=== PATIENT | male | born 1980 | race Caucasian/White ===

== ENCOUNTER 2016-12-14 21:14 | Emergency (ER) | payer OTHER ==
[~2016-12-14 21:14] MED LIST: ATIVAN0.5 MG PO; BACLOFEN10 MG PO; BACTROBAN22 GM; FOLIC ACID 1 MG1 MG PO; LEVAQUIN500 MG PO; MAGIC MOUTHWASH PO; NEURONTIN300 MG PO; THERAGRAN TAB1 EA PO; ZANTAC150 MG PO
== END 2016-12-15 02:00 | disposition left against medical advice (07) ==
LOC: ER1 21:14
DX: Z53.21 Procedure and treatment not carried out due to patient leaving prior to being seen by health care provider (principal)

== ENCOUNTER → 2017-02-27 | Outpatient (CLI) | payer OTHER | LOC: RAD 14:44 | DX: M54.2 Cervicalgia (principal); M54.6 Pain in thoracic spine; M54.5 Low back pain; R05 Cough; N20.0 Calculus of kidney | CPT/HCPCS: 71020; 72050; 72072; 72110 ==